=== PATIENT | male | born 1990 | race Caucasian/White ===

== ENCOUNTER 2020-11-14 22:21 | Emergency (ER) | payer OTHER ==
--- NOTE | 2020-11-14 22:22 | NUR ---
ARRIVAL PT ARRIVED POV WITH PARENT C/O STERNAL, NON-RADIATING, REPRODUCIBLE CHEST PAIN RATING 8/10 ON PAIN SCALE. PT REPORTS CONSTANT, SOB DENIES N/V AND REPORTS HURTS TO BREATH. PT PLACED ON EXHIBIT ARTIST, NOTED SR RATE 62 NO ECTOPY, OR PVC'S NOTED. RR REGULAR, NON-LABORED AT RATE 18. PT ENCOURAGED TO NOT HOLD HIS BREATHS.
[2020-11-14 22:32] VITALS: BP 166/99
[2020-11-14] MEDS ORDERED: TORADOL IV STA (22:32)
[2020-11-14] MEDS ORDERED: ASPIRIN PO STA (22:32)
--- NOTE | 2020-11-14 22:36 | ER.PDOC ---
General Chief Complaint: Requesting Medical Care Stated Complaint: CHEST PAIN Time seen by MD: 22:34 Source: patient Exam Limitations: no limitations History of Present Illness Initial Comments Chest pain mid sternum that started about 2 to 3 hours ago. No radiation and pain is worse with inspiration. No nausea, vomiting or diaphoresis. No shortness of breath. Severity/Quality: moderate, sharp Radiation: no radiation Activities at Onset: rest Prior CP/Workup: No Prior Chest Pain Nitro Today/Relief: No Nitro Taken Today Aspirin Today: 325 mg x 1, Provided By ED Associated Symptoms: denies symptoms Past Medical History Medical History: no pertinent history Surgical History: no surgical history Family History Significant Family History: no pertinent family hx Social History Smoking: quit less than 1 year Drug Use: none Constitutional: no symptoms reported EENTM: no symptoms reported Respiratory: no symptoms reported Cardiovascular: see HPI Gastrointestinal: no symptoms reported Genitourinary: no symptoms reported All Other Systems: Reviewed and Negative Physical Exam General Appearance: No Apparent Distress, WD/WN Neck: Non-Tender, Full Range of Motion, Supple, Normal Inspection Respiratory: chest non-tender, lungs clear, normal breath sounds, no respiratory distress, no accessory muscle use Cardiovascular: Normal Peripheral Pulses, Regular Rate, Rhythm, No Edema, No Gallop, No JVD, No Murmur Gastrointestinal: Normal Bowel Sounds, No Organomegaly, No Pulsatile Mass, Non Tender, Soft Extremities: Normal Range of Motion, Non-Tender, Normal Inspection, No Pedal Edema, No Calf Tenderness, Normal Capillary Refill Neurologic/Psychiatric: production support analyst II-XII NML as Tested, No Motor/Sensory Deficits, Alert, Normal Mood/Affect, Oriented x 3 Skin: Normal Color, Warm/Dry Lymphatic: No Adenopathy Results/Orders Results/Orders Orders - RICK MICHELLE MD Cbc With Auto Diff (11/14/20 22:32) Comprehensive Metabolic Panel (11/14/20 22:32) Creatine Kinase (11/14/20 22:32) Creatine Kinase Mb (11/14/20 22:32) Troponin I (11/14/20 22:32) Probnp B-Type Elastic Assembler (11/14/20 22:32) D-Dimer (11/14/20 22:32) Xr Chest 1v (11/14/20 22:32) Ekg-Routine (11/14/20 22:32) Aspirin (Aspirin) (11/14/20 22:32) Ketorolac Tromethamine (Toradol) (11/14/20 22:32) Progress Progress Patient is feeling better with the Toradol shot. His pain is almost resolved. Labs are unremarkable. EKG is normal. Patient discharged home to follow-up with his PCP. EKG/XRAY/CT/US EKG: no ST T wave changes EKG Comments: HR 81, normal P axis XRAY: chest (Normal) ER DEPART Departure Time of Disposition: 23:21 Disposition: 01 HOME, SELF-CARE Impression: Primary Impression: Chest wall tenderness Condition: Improved Referrals: PCP,UNKNOWN (PCP) PRIMARY CARE PROVIDER Additional Instructions: Ibuprofen F/U with your PCP in 2-3 days Return to ED if worsening pain or concerns Duration or Time Spent with Pa: 30 min RICK MICHELLE MD Nov 14, 2020 22:36
--- NOTE | 2020-11-14 22:37 | PCM.EKG ---
[facility] Test Date: 2020-11-14 Test Time: 22:33:25 Pat Name: NIELS JENSEN Department: Room: Gender: M Health Information Provider: ED : 1990 Requested By: RICK MICHELLE Order Number: [id number] Reading MD: Measurements Intervals [place] Rate: 51 P: -15 MD: 153 QRS: 75 QRSD: 106 T: 69 QT: 449 QTc: 414 Interpretive Statements Sinus rhythm No previous ECG available for comparison Please click the below link to view image of tracing.
[2020-11-14] MEDS ORDERED: ASPIRIN ONE (22:43)
[2020-11-14] MEDS ORDERED: TORADOL ONE (22:43)
[2020-11-14 22:45] LABS: BASOPHIL # 0.1 10^3/uL (0.0-0.1); BASOPHIL % 1.1 % (0.0-0.2); EOSINOPHIL # 0.3 10^3/uL (0.0-0.2); EOSINOPHIL % 4.1 % (0.0-5.0); LYMPHOCYTES # 3.37 10^3/uL1 (1.0-4.8); LYMPHOCYTES % 40.3 % (24.0-44.0); MEAN CORP HGB 30.5 pg (26-34); MONOCYTES # 0.6 10^3/uL (0.3-0.8); MONOCYTES % 7.5 % (5.0-12.0); NEUTROPHIL # 3.9 10^3/uL (1.8-7.7); PLATELET COUNT 271 10^3/uL (150-400); RED CELL DISTRIBUTION WIDTH 11.6 % (11.5-14.5)
--- NOTE | 2020-11-14 22:48 | DIREP ---
PROCEDURE:CHEST 1 VIEW COMPARISON:None. INDICATIONS:Chest pain FINDINGS: LUNGS/PLEURA:No significant pulmonary parenchymal abnormalities. No effusions. VASCULATURE:Normal. Unremarkable pulmonary vasculature. CARDIAC:Normal. No cardiac silhouette abnormality or cardiomegaly. MEDIASTINUM:Normal. No visible mass or adenopathy. BONES:Normal. No fracture or visible bony lesion. OTHER:Negative. CONCLUSION:No acute disease. Dictated by: Dandre Victoria MD on 11/14/2020 at 10:46 PM
--- NOTE | 2020-11-14 22:48 | NUR ---
MEDICATION ASA 325 MG AND TORADOL 30 MG IVP GIVEN FOR COMFORT MEASURES.
[2020-11-14 23:02] LABS: ALANINE AMINOTRANSFERASE(ML) 32 U/L (12-78); ALKALINE PHOSPHATASE 71 U/L (50-136); ASPARTATE AMINO TRANSFERASE 18 U/L (0-35); CALCIUM 8.7 mg/dL (8.4-10.5); CARBON DIOXIDE 30.5 mmol/L (20.0-32); GLUCOSE 99 mg/dL (70-110)
[2020-11-14 23:30] VITALS: BP 149/87
--- NOTE | 2020-11-14 23:30 | NUR ---
DISCHARGE DC INSTRUCTIONS GIVEN TO PT. PT VERBALIZED UNDERSTANDING. DC VITALS OBTAINED, WNL. 20 L AC DC'D W/TIP INTACT, SECURED WITH 2 X 2 GUAZE AND COBAN. NO BLEEDING NOTED. PT A & 0 X 3, RR REGULAR, UNLABORED. PT ABLE TO MAKE NEEDS KNOWN, NO DISTRESS NOTED. PT REPORTED RELIEF FROM PAIN IN STERNAL AREA. PT STATED HE WAS ABOUT TO GO TO SLEEP. PT AMBULATED TO POV W/OUT DIFFICULTY.
== END 2020-11-14 23:30 | disposition home or self-care (01) ==
LOC: ER 22:21
DX: R07.89 Other chest pain (principal); Z87.891 Personal history of nicotine dependence
CPT/HCPCS: 36415; 71045; 80053; 82550; 82553; 83880; 84484; 85025; 85379; 93005; 96374; 99285; J1885